=== PATIENT | male | born 1990 | race Caucasian/White ===

== ENCOUNTER 2024-11-30 11:57 | Emergency (ER) | payer SELFPAY ==
[~2024-11-30] VITALS: Ht 160 cm; Wt 68.0 kg
[2024-11-30 12:07] VITALS: TEMP 36.8; O2SAT 100
[2024-11-30] MEDS ORDERED: IBUP-2029 MT (17:27)
[2024-11-30 17:36] VITALS: BP 116/75; PULSE 73; RESP 18; O2SAT 100
== END 2024-11-30 17:36 | disposition home or self-care (01) ==
LOC: ER 11:57
DX: M79.645 Pain in left finger(s) (principal); M25.532 Pain in left wrist; M25.562 Pain in left knee; X58.XXXA Exposure to other specified factors, initial encounter; Y93.89 Activity, other specified; Y92.89 Other specified places as the place of occurrence of the external cause; Y99.8 Other external cause status
CPT/HCPCS: 73110; 73130; 73140; 73560; 99284

== ENCOUNTER 2024-12-07 15:31 | Emergency (ER) | payer SELFPAY ==
[~2024-12-07] VITALS: Ht 167.6 cm; Wt 82.0 kg
[~2024-12-07 15:31] MED LIST: IBUP-2029 MT
[2024-12-07 15:44] VITALS: BP 116/70; PULSE 79; RESP 16; TEMP 36.7; O2SAT 98
[2024-12-07] MEDS ORDERED: IBUP-2028 MT (16:03)
[2024-12-07] MEDS: KETOROLAC 30MG/ML VIAL IM ONE (17:08)
== END 2024-12-07 17:10 | disposition home or self-care (01) ==
LOC: ER 15:31
DX: M25.562 Pain in left knee (principal); Z79.899 Other long term (current) drug therapy
CPT/HCPCS: 73562; 99283; J1885; Z7610